=== PATIENT | female | born 2000 | race Caucasian/White ===

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

== ENCOUNTER 2024-08-19 16:53 | Emergency (ER) | payer OTHER ==
[~2024-08-19] VITALS: Ht 175.3 cm; Wt 112.9 kg
[~2024-08-19 16:53] MED LIST: FLUOXETINE HCL20 MG PO
[2024-08-19 18:04] VITALS: BP 148/84
== END 2024-08-19 18:05 | disposition home or self-care (01) ==
LOC: ED 16:53
DX: S61.411A Laceration without foreign body of right hand, initial encounter (principal); Z79.899 Other long term (current) drug therapy; W26.0XXA Contact with knife, initial encounter; Y93.G1 Activity, food preparation and clean up
CPT/HCPCS: 99282